=== PATIENT | male | born 1940 | race Caucasian/White ===

== ENCOUNTER 2017-05-04 19:45 | Emergency (ER) | payer MEDICARE, BC ==
--- NOTE | 2017-05-04 20:03 | EDM.PDOC ---
ED HPI GENERAL MEDICAL PROBLEM - General Chief Complaint: Trauma Stated Complaint: LEFT ANKLE PAIN/INJURY Time Seen by Provider: 05/04/17 19:55 Source of Information: Reports: Patient History Limitations: Reports: No Limitations - History of Present Illness INITIAL COMMENTS - FREE TEXT/NARRATIVE: PT STATES AT 1645 TODAY HE ACCIDENTALLY FELL FROM A LADDER AND INJURED LEFT ANKLE AND LEFT RIBS. DENIES LOC, HEAD INJURY, NECK OR BACK PAIN. Onset: Today Duration: Hour(s): Location: Reports: Chest, Lower Extremity, Left Quality: Reports: Ache, Dull Severity: Mild Improves with: Reports: Rest Worsens with: Reports: Movement Associated Symptoms: Reports: No Other Symptoms - Related Data Allergies Allergy/AdvReac Type Severity Reaction Status Date / Time erythromycin base Allergy Stomach Verified 05/04/17 20:08 Upset latex Allergy Itching Verified 05/04/17 20:08 dust mites Allergy Unknown Respiratory Uncoded 05/04/17 20:08 Distress Home Meds: Home Meds Calcium Carb/D3/Magnesium/Zinc [Demetri Mag Zinc + D3] 1 each PO BID 12/05/14 [ History] Diclofenac Sodium [Voltaren] 75 mg PO DAILY PRN 12/05/14 [History] Fluticasone/Salmeterol [Advair 100-50 Diskus] 1 puff INH DAILY 12/05/14 [History ] Tadalafil [Cialis] 5 mg PO DAILY PRN 12/05/14 [History] amLODIPine [Norvasc] 5 mg PO DAILY 12/05/14 [History] Albuterol Sulfate 1.25 mg IH Q4HR PRN #30 ml 10/24/16 [Rx] Alclometasone Dipropionate 1 applic TOP DAILY 05/04/17 [History] Social & Family History - Tobacco Use Smoking Status *Q: Never Smoker Second Hand Smoke Exposure: No - Caffeine Use Caffeine Use: Reports: Tea - Alcohol Use Days Per Week of Alcohol Use: 1 Number of Drinks Per Day: 1 Total Drinks Per Week: 1 - Recreational Drug Use Recreational Drug Use: No - Living Situation & Occupation Occupation: Retired Review of Systems - Review of Systems Review Of Systems: ROS reveals no pertinent complaints other than HPI. Constitutional: Reports: No Symptoms Eyes: Reports: No Symptoms Ears: Reports: No Symptoms Nose: Reports: No Symptoms Mouth/Throat: Reports: No Symptoms Respiratory: Reports: No Symptoms Cardiovascular: Reports: No Symptoms GI/Abdominal: Reports: No Symptoms Genitourinary: Reports: No Symptoms Musculoskeletal: Reports: Leg Pain (LEFT), Joint Pain, Joint Swelling, Other ( LEFT RIB PAIN) Skin: Reports: No Symptoms Neurological: Reports: No Symptoms Psychiatric: Reports: No Symptoms ED EXAM, GENERAL - Physical Exam Exam: See Below Exam Limited By: No Limitations General Appearance: Alert, WD/WN, No Apparent Distress Eye Exam: Bilateral Eye: Normal Inspection Nose: Normal Inspection, No Blood Throat/Mouth: Normal Inspection, Normal Oropharynx, No Airway Compromise Head: Atraumatic, Normocephalic Neck: Normal Inspection, Supple, Non-Tender, Full Range of Motion Respiratory/Chest: No Respiratory Distress, Lungs Clear, Normal Breath Sounds, Other (LEFT RIB TENDER TO PALP/ NO FLAIL, EDEMA, ERYTHEMA, ECCHYMOSIS NOTED) Cardiovascular: Regular Rate, Rhythm, No Murmur GI/Abdominal: Normal Bowel Sounds, Soft, Non-Tender Back Exam: Normal Inspection, Full Range of Motion. No: CVA Tenderness (L), CVA Tenderness (R) Extremities: Joint Swelling (LEFT ANKLE), Leg Pain (LEFT LATERAL MALLEOLUS EDEMA / NO NEUROVASC DEFICIT NOTED) Neurological: Alert, Oriented, CN II-XII Intact, Normal Cognition Psychiatric: Normal Affect, Normal Mood Skin Exam: Warm, Dry, Intact, Normal Color, No Rash Lymphatic: No Adenopathy Course - Orders/Labs/Meds Orders: Active Orders 24 hr Category Date Time Status Ankle Min 3V Lt [CR] Stat Exams 05/04/17 19:57 Ordered Ribs 2V w Chest Lt [CR] Stat Exams 05/04/17 19:57 Ordered - Radiology Interpretation Free Text/Narrative:: xrays show no acute process / fracture or dislocation - Re-Assessments/Exams Free Text/Narrative Re-Assessment/Exam: 05/04/17 21:00 PT AFEBRILE, NONTOXIC APPEARING, VSS, ANKLE SPLINT APPLIED Departure - Departure Time of Disposition: 21:02 Disposition: Home, Self-Care 01 Condition: Good Clinical Impression: Left ankle sprain Qualifiers: Encounter type: initial encounter Involved ligament of ankle: unspecified ligament Qualified Code(s): S93.402A - Sprain of unspecified ligament of left ankle, initial encounter Contusion of rib on left side Qualifiers: Encounter type: initial encounter Qualified Code(s): S20.212A - Contusion of left front wall of thorax, initial encounter - Discharge Information Instructions: Ankle Sprain, [id number], Rib Contusion Additional Instructions: FOLLOW UP WITH YOUR PCP IN NEXT 3-5 DAYS. RETURN TO ER SOONER IF SYMPTOMS CONTINUE - My Orders Last 24 Hours: My Active Orders 05/04/17 19:57 Ankle Min 3V Lt [CR] Stat Ribs 2V w Chest Lt [CR] Stat - Assessment/Plan Last 24 Hours: My Active Orders 05/04/17 19:57 Ankle Min 3V Lt [CR] Stat Ribs 2V w Chest Lt [CR] Stat Assessment:: ANKLE SPRAIN / RIB CONTUSION Plan: F/U WITH PCP
[2017-05-04 20:23] VITALS: BP 165/73
[2017-05-04] MEDS ORDERED: Ketorolac 60 MG/2 ML SDV IM ONE (20:23)
[2017-05-04] MEDS ORDERED: Ketorolac 60 MG/2 ML SDV ONE (20:25)
== END 2017-05-04 21:10 | disposition home or self-care (01) ==
LOC: KA.ED 19:45
DX: S93.402A Sprain of unspecified ligament of left ankle, initial encounter (principal); S20.212A Contusion of left front wall of thorax, initial encounter; Z79.899 Other long term (current) drug therapy; Z88.1 Allergy status to other antibiotic agents; Z91.040 Latex allergy status; W11.XXXA Fall on and from ladder, initial encounter
CPT/HCPCS: 71101; 73610; 96372; 99283; J1885

== ENCOUNTER 2018-03-26 11:20 | Observation (INO) | payer OTHER, MEDICARE, BC ==
[2018-03-26] MEDS ORDERED: Ondansetron 4 MG/2 ML SDV IM ONE (11:35)
[2018-03-26] MEDS ORDERED: Morphine 2 MG/ML Syringe IVPUSH ONE (11:38)
[2018-03-26] MEDS ORDERED: Ondansetron 4 MG/2 ML SDV ONE (11:45)
[2018-03-26] MEDS ORDERED: ALBUTEROL SULFATE 1.25 MG IH PRN (12:51)
[2018-03-26] MEDS ORDERED: TADALAFIL 5 MG PO PRN (12:51)
[2018-03-26] MEDS ORDERED: Diclofenac Sodium 50 MG Tab.EC PO PRN (12:51)
[2018-03-26] MEDS ORDERED: Morphine 2 MG/ML Syringe IVPUSH PRN (12:53)
[2018-03-26] MEDS ORDERED: Calcitonin (Salmon) Nasal Spray 3.7 ML Bottle NAS SCH (13:00)
[2018-03-26] MEDS: Acetaminophen/HYDROcodone 325-10 MG Tab PO PRN ×2 (13:45→21:05)
[2018-03-26] MEDS: hydrOXYzine HCl 50 MG/ML SDV IM PRN (14:38)
--- NOTE | 2018-03-26 17:08 | EDM.PDOC ---
ED HPI GENERAL MEDICAL PROBLEM - General Chief Complaint: Back Pain or Injury Stated Complaint: FALL Time Seen by Provider: 03/26/18 11:20 Source of Information: Reports: Patient History Limitations: Reports: No Limitations - History of Present Illness INITIAL COMMENTS - FREE TEXT/NARRATIVE: 77-year-old male presents emergency room with complaints of pelvic and low back pain. Patient also has a an abrasion contusion over the posterior aspect of the parietal lobe. 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 He reports a brief loss of consciousness for a few seconds. He denies any nausea or vomiting. He denies significant headache. He has no chest pain or shortness of breath. He denies difficulty breathing. He has increased pain in his lower back and across his pelvis. He reports significant increased pain in his low back and pelvis with ambulation. He denies any extremity pain swelling or deformity of either the upper or lower extremities. He has no double vision or blurred vision. He denies any speech difficulties, he denies any balance problems. He denies any numbness or tingling in his extremities he has no saddle paresthesias or numbness in the peritoneal area. He has no loss of bowel or bladder control. He is brought in by his . Onset: Today Onset Date: 03/26/18 Duration: Minutes: Location: Reports: Back, Pelvis Quality: Reports: Sharp Severity: Severe Improves with: Reports: Rest Worsens with: Reports: Movement Associated Symptoms: Reports: Other (head trauma, LOC). Denies: Chest Pain, Headaches, Nausea/Vomiting, Shortness of Breath Lower Back Pain Score (Numeric/FACES): 8 - Related Data Allergies Allergy/AdvReac Type Severity Reaction Status Date / Time erythromycin base Allergy Stomach Verified 03/26/18 14:04 Upset latex Allergy Itching Verified 03/26/18 14:04 dust mites Allergy Unknown Respiratory Uncoded 05/04/17 20:08 Distress Home Meds: Home Meds Calcium Carb/D3/Magnesium/Zinc [Demetri Mag Zinc + D3] 1 each PO BID 12/05/14 [ History] Diclofenac Sodium [Voltaren] 75 mg PO DAILY PRN 12/05/14 [History] Fluticasone/Salmeterol [Advair 100-50 Diskus] 1 puff INH DAILY 12/05/14 [History ] Tadalafil [Cialis] 5 mg PO DAILY PRN 12/05/14 [History] amLODIPine [Norvasc] 5 mg PO DAILY 12/05/14 [History] Albuterol Sulfate 1.25 mg IH Q4HR PRN #30 ml 10/24/16 [Rx] Past Medical History HEENT History: Reports: Cataract Cardiovascular History: Reports: Hypertension Respiratory History: Reports: Asthma Gastrointestinal History: Reports: Chronic Constipation Musculoskeletal History: Reports: Arthritis Neurological History: Reports: None Endocrine/Metabolic History: Reports: Osteoporosis, Vitamin D Deficiency Oncologic (Cancer) History: Reports: Other (See Below) Other Oncologic History: skin cancer removed from face - Infectious Disease History Infectious Disease History: Reports: Chicken Pox, Pertussis (Whooping Cough), Shingles - Past Surgical History HEENT Surgical History: Reports: Cataract Surgery, Oral Surgery Cardiovascular Surgical History: Reports: None Respiratory Surgical History: Reports: None GI Surgical History: Reports: Bariatric Procedure, Colonoscopy Endocrine Surgical History: Reports: None Neurological Surgical History: Reports: None Musculoskeletal Surgical History: Reports: Other (See Below) Other Musculoskeletal Surgeries/Procedures:: left rotator cuff. right hand surgery Social & Family History - Tobacco Use Smoking Status *Q: Never Smoker - Caffeine Use Caffeine Use: Reports: Coffee, Soda - Recreational Drug Use Recreational Drug Use: No - Living Situation & Occupation Occupation: Retired ED ROS GENERAL - Review of Systems Review Of Systems: ROS reveals no pertinent complaints other than HPI. ED EXAM,LOWER BACK PAIN/INJURY - Physical Exam Exam: See Below Exam Limited By: No Limitations General Appearance: Alert, WD/WN, Mild Distress Eye Exam: Bilateral Eye: EOMI, PERRL, Other (No evidence of raccoon eyes) Ears: Normal External Exam, Normal Canal, Hearing Grossly Normal, Normal TMs, Other (No blood in the ears, no neal sign) Nose: Normal Inspection, Normal Mucosa, No Blood Throat/Mouth: Normal Inspection, Normal Lips, Normal Teeth, Normal Gums, Normal Oropharynx, Normal Voice, No Airway Compromise Head: Other (Scalp abrasions posterior parietal, no deformity and no crepitation of the skull) Neck: Normal Inspection, Supple, Non-Tender, Full Range of Motion. No: Tender Lateral, Tender Midline Respiratory/Chest: No Respiratory Distress, Lungs Clear, Normal Breath Sounds, No Accessory Muscle Use, Chest Non-Tender Cardiovascular: Normal Peripheral Pulses, Regular Rate, Rhythm GI/Abdominal: Normal Bowel Sounds, Soft, Non-Tender Back Exam: Paraspinal Tenderness, Vertebral Tenderness, Other (Motion is limited and patient has increased pain when arising from most flap to an upright position. Patient is log rolled) Extremities: Normal Inspection, Normal Range of Motion, Non-Tender, No Pedal Edema, Normal Capillary Refill, Other (No pain or tenderness to palpation of the pelvis. He has normal hip range of motion. Both the upper and lower extremities have no swelling warmth deformity or joint swelling) Neurological: Alert, Normal Mood/Affect, Normal Dorsiflexion, CN II-XII Intact, Normal Plantar Flexion, Normal Reflexes, No Motor/Sensory Deficits, Oriented x 3 Psychiatric: Normal Affect, Normal Mood Skin Exam: Warm, Dry, Intact, Normal Color, No Rash Course - Vital Signs Last Recorded V/S: Last Vital Signs Temp 98.2 F 03/26/18 12:49 Pulse 94 03/26/18 12:49 Resp 20 03/26/18 12:49 BP 145/103 H 03/26/18 12:49 Pulse Ox 97 03/26/18 12:49 - Orders/Labs/Meds Orders: Active Orders 24 hr Category Date Time Status Head wo Cont [CT] Stat Exams 03/26/18 11:40 Taken Lumbar Spine 2 or 3V [CR] Stat Exams 03/26/18 11:38 Taken Pelvis 1V or 2V [CR] Stat Exams 03/26/18 11:38 Taken Medication Orders Hydrocodone Bitart/Acetaminophen ([place] 325-10 Mg) 1 tab PO Q4H PRN PRN Reason: Pain Last Admin: 03/26/18 13:45 Dose: 1 tab Amlodipine Besylate (Norvasc) 5 mg PO DAILY NOEL Calcitonin [place] (Miacalcin Nasal [place]) 0 ml [place] DAILY NOEL Last Admin: 03/26/18 16:36 Dose: Diclofenac Sodium (Voltaren) 75 mg PO DAILY PRN PRN Reason: Pain Hydroxyzine HCl (Vistaril) 50 - 75 mg IM Q4H PRN PRN Reason: muscle spasms Last Admin: 03/26/18 14:38 Dose: 75 mg Morphine Sulfate (Morphine) 2 mg IVPUSH Q4H PRN PRN Reason: Pain Non-Formulary Medication (Albuterol Sulfate [Albuterol Sulfate]) 1.25 mg IH Q4HR PRN PRN Reason: Shortness of Breath Non-Formulary Medication (Alclometasone Dipropionate [Alclometasone Dipropionate ]) 1 applic TOP DAILY NOEL Non-Formulary Medication (Calcium Carb/D3/Magnesium/Zinc [Demetri Mag Zinc + D3]) 1 each PO BID NOEL Non-Formulary Medication (Tadalafil [Cialis]) 5 mg PO DAILY PRN PRN Reason: Other Fluticasone/Salmeterol (Advair Diskus 100-50) 1 puff INH DAILY NOEL Meds: Medications Generic Name Dose Route Start Last Admin Trade Name Freq PRN Reason Stop Dose Admin Hydrocodone Bitart/Acetaminophen 1 tab 03/26/18 12:52 03/26/18 13:45 [place] 325-10 Mg PO 1 tab Q4H PRN Administration Pain Amlodipine Besylate 5 mg 03/27/18 09:00 Norvasc PO DAILY [facility] Calcitonin [place] 0 ml 03/26/18 13:00 03/26/18 16:36 Miacalcin Nasal [place] WOOD[place] Not Given DAILY [facility] Diclofenac Sodium 75 mg 03/26/18 12:51 Voltaren PO DAILY PRN Pain Hydroxyzine HCl 50 - 75 mg 03/26/18 14:15 03/26/18 14:38 Vistaril IM 75 mg Q4H PRN Administration muscle spasms Morphine Sulfate 2 mg 03/26/18 12:53 Morphine IVPUSH Q4H PRN Pain Non-Formulary Medication 1.25 mg 03/26/18 12:51 Albuterol Sulfate [Albuterol Sulfate] IH Q4HR PRN Shortness of Breath Non-Formulary Medication 1 applic 03/27/18 09:00 Alclometasone Dipropionate [Alclometasone Dipropionate] TOP DAILY NOEL Non-Formulary Medication 1 each 03/26/18 21:00 Calcium Carb/D3/Magnesium/Zinc [Demetri Mag Zinc + D3] PO BID NOEL Non-Formulary Medication 5 mg 03/26/18 12:51 Tadalafil [Cialis] PO DAILY PRN Other Fluticasone/Salmeterol 1 puff 03/27/18 09:00 Advair Diskus 100-50 INH DAILY NOEL Discontinued Medications Generic Name Dose Route Start Last Admin Trade Name Jase PRN Reason Stop Dose Admin Morphine Sulfate 2 mg 03/26/18 11:38 03/26/18 11:45 Morphine IVPUSH 03/26/18 11:39 2 mg ONETIME ONE Administration Ondansetron HCl Confirm 03/26/18 11:45 03/26/18 11:35 Zofran Administered 03/26/18 11:46 4 mg Dose Administration 4 mg .ROUTE .[facility] ONE - Re-Assessments/Exams Free Text/Narrative Re-Assessment/Exam: 03/26/18 17:12 Patient was given 2 mg of IV morphine. His pain is well controlled at rest. Departure - Departure Time of Disposition: 13:25 Disposition: Admitted As Inpatient 67 Condition: Good Clinical Impression: Abrasion of scalp Qualifiers: Encounter type: initial encounter Qualified Code(s): S00.01XA - Abrasion of scalp, initial encounter Head trauma Qualifiers: Encounter type: initial encounter Qualified Code(s): S09.90XA - Unspecified injury of head, initial encounter Compression fracture of L1 lumbar vertebra Qualifiers: Encounter type: initial encounter Fracture type: closed Qualified Code(s): S32.010A - Wedge compression fracture of first lumbar vertebra, initial encounter for closed fracture Contusion of pelvic region Qualifiers: Encounter type: initial encounter Qualified Code(s): S30.0XXA - Contusion of lower back and pelvis, initial encounter - Discharge Information - My Orders Last 24 Hours: My Active Orders 03/26/18 11:38 Lumbar Spine 2 or 3V [CR] Stat Pelvis 1V or 2V [CR] Stat 03/26/18 11:40 Head wo Cont [CT] Stat - Assessment/Plan Last 24 Hours: My Active Orders 03/26/18 11:38 Lumbar Spine 2 or 3V [CR] Stat Pelvis 1V or 2V [CR] Stat 03/26/18 11:40 Head wo Cont [CT] Stat Assessment:: 1. Compression fracture or vertebral body of L1 2. Scalp abrasion 3. Head trauma 4. Pelvic contusion Plan: 1. Admit for pain control. 2. Patient will need to be fitted with a Browne brace by PT tomorrow. A #6 steel cell brace will need to be custom fitted for the patient and will need to wear this for 3 months. 3. Log roll while getting out of bed 4. 10 pound or less lifting limit 5. Miacalcin nasal spray for fracture pain and for compression fracture. 6. Follow-up with orthospine in 7-10 days. Please use patient's ER note as admission H&P.
[2018-03-26] MEDS: Non-Formulary Medication 1 Each (Calcium Carb/D3/Magnesium/Zinc [Cal Mag Zinc + D3] 1 EACH PO SCH (20:57)
[2018-03-26] MEDS ORDERED: Albuterol 0.083% 2.5 MG/3 ML Neb Soln INH PRN (22:30)
[2018-03-26] MEDS ORDERED: Diclofenac Sodium 75 MG Tab.EC PO PRN (22:30)
[2018-03-27] MEDS: hydrOXYzine HCl 50 MG/ML SDV IM PRN (06:10)
[2018-03-27] MEDS ORDERED: ALCLOMETASONE DIPROPIONATE TOP SCH (09:00)
[2018-03-27] MEDS ORDERED: Fluticasone/Salmeterol 100-50 MCG Inhalation Powder 14/Diskus INH SCH (09:00)
[2018-03-27] MEDS: Non-Formulary Medication 1 Each (Calcium Carb/D3/Magnesium/Zinc [Cal Mag Zinc + D3] 1 EACH PO SCH (09:37)
[2018-03-27] MEDS: amLODIPine 5 MG Tab PO SCH (09:37)
[2018-03-27] MEDS ORDERED: [UNRECOGNIZED DRUG - REMARK] TOP PRN (10:15)
[2018-03-27] MEDS: Acetaminophen/HYDROcodone 325-10 MG Tab PO PRN ×3 (10:59→20:44)
[2018-03-27] MEDS: Cyclobenzaprine 10 MG Tab PO PRN ×2 (11:23→20:44)
--- NOTE | 2018-03-27 13:49 | PCM.PN ---
- General Info Date of Service: 03/27/18 Admission Dx/Problem (Free Text): Fall with L1 compression fracture, here for pain control. - Review of Systems Systems Review Comment:: Earl is seen this morning on inpatient rounds. He fell yesterday (03/26) from a tractor he was climbing into and carrying several things, losing his balance. He did his his posterior head, head CT was negative. He was having low back pain and pelvic pain. X-ray of pelvis was negative but lumbar spine x-ray showed an L1 compression fracture. Ortho recommend a criciform anterior spinal hyperextension brace (MARTINS) with eventual TLSO brace for 3 months. He was admitted for pain control. He states when he is flat in bed he is OK but pain goes up to a 6/7 with movement. He was also started on nasal calcitonin. He is on hydrocodone/APAP 10/325 mg tabs 1 PO q 4 hours PRN as well as morphine 2 mg IV as needed for breakthrough pain. As if this morning he had not taken any pain meds today. He is passing his bowels and urine. He has been up to the bathroom. He does log-rolling for turns in bed. - Patient Data Vitals - Most Recent: Last Vital Signs Temp 99.6 F 03/27/18 11:00 Pulse 87 03/27/18 11:00 Resp 16 03/27/18 11:00 BP 130/77 03/27/18 11:00 Pulse Ox 93 L 03/27/18 11:00 Weight - Most Recent: 215 lb I&O - Last 24 Hours: Intake & Output 03/26/18 03/27/18 03/27/18 22:59 06:59 14:59 Intake Total 470 100 Output Total 825 300 Balance -355 -200 Med Orders - Current: Current Medications Hydrocodone Bitart/Acetaminophen ([place] 325-10 Mg) 1 tab PO Q4H PRN PRN Reason: Pain Last Admin: 03/27/18 10:59 Dose: 1 tab Albuterol (Proventil Neb Soln) 1.25 mg INH Q4HR PRN PRN Reason: Shortness of Breath Amlodipine Besylate (Norvasc) 5 mg PO DAILY NOEL Last Admin: 03/27/18 09:37 Dose: 5 mg Calcitonin [place] (Miacalcin Nasal [place]) 0 ml [place] 2100 NOEL Cyclobenzaprine HCl (Flexeril) 10 mg PO TID PRN PRN Reason: muscle spasm Last Admin: 03/27/18 11:23 Dose: 10 mg Diclofenac Sodium (Voltaren) 75 mg PO DAILY PRN PRN Reason: Pain Hydroxyzine HCl (Vistaril) 50 - 75 mg IM Q4H PRN PRN Reason: muscle spasms Last Admin: 03/27/18 06:10 Dose: 75 mg Morphine Sulfate (Morphine) 2 mg IVPUSH Q4H PRN PRN Reason: Pain Non-Formulary Medication (Calcium Carb/D3/Magnesium/Zinc [Demetri Mag Zinc + D3]) 1 each PO BID [facility] Last Admin: 03/27/18 09:37 Dose: Not Given Non-Formulary Medication (Tadalafil [Cialis]) 5 mg PO DAILY PRN PRN Reason: Other Non-Form Alclometasone Dipropionate 1 applic TOP DAILY PRN PRN Reason: rash Fluticasone/Salmeterol (Advair Diskus 100-50) 1 puff INH DAILY [facility] Last Admin: 03/27/18 09:37 Dose: Not Given Senna/Docusate Sodium (Senna Plus) 1 tab PO BEDTIME NOEL Discontinued Medications Calcitonin [place] (Miacalcin Nasal [place]) 0 ml [place] DAILY [facility] Last Admin: 03/26/18 16:36 Dose: Not Given Diclofenac Sodium (Voltaren) 75 mg PO DAILY PRN PRN Reason: Pain Morphine Sulfate (Morphine) 2 mg IVPUSH ONETIME ONE Stop: 03/26/18 11:39 Last Admin: 03/26/18 11:45 Dose: 2 mg Non-Formulary Medication (Albuterol Sulfate [Albuterol Sulfate]) 1.25 mg IH Q4HR PRN PRN Reason: Shortness of Breath Non-Formulary Medication (Alclometasone Dipropionate [Alclometasone Dipropionate ]) 1 applic TOP DAILY [facility] Last Admin: 03/27/18 10:08 Dose: Not Given Ondansetron HCl (Zofran) Confirm Administered Dose 4 mg .ROUTE .STK-MED ONE Stop: 03/26/18 11:46 Last Admin: 03/26/18 11:35 Dose: 4 mg Ondansetron HCl (Zofran) 4 mg IM ONETIME ONE Stop: 03/26/18 11:36 Last Admin: 03/26/18 20:45 Dose: Not Given - Exam General: Alert, Oriented, Cooperative, No Acute Distress Lungs: Clear to Auscultation, Normal Respiratory Effort Cardiovascular: Regular Rate, Regular Rhythm, No Murmurs Extremities: Normal Inspection - Problem List & Annotations (1) Compression fracture of L1 lumbar vertebra SNOMED Code(s): 481399944 Code(s): S32.010A - WEDGE COMPRESSION FRACTURE OF FIRST LUMBAR VERTEBRA, INIT Status: Acute Current Visit: Yes Qualifiers: Encounter type: initial encounter Fracture type: closed Qualified Code(s) : S32.010A - Wedge compression fracture of first lumbar vertebra, initial encounter for closed fracture - Problem List Review Problem List Initiated/Reviewed/Updated: Yes - My Orders Last 24 Hours: My Active Orders 03/27/18 11:19 Cyclobenzaprine [Flexeril] 10 mg PO TID PRN 03/27/18 21:00 Docusate Sodium/Sennosides [Senna Plus] 1 tab PO BEDTIME - Assessment Assessment:: L1 Compression fracture. - Plan Plan:: L1 Compression fracture. The machine puller was able to come from [place] today to measure him for a TLSO was also able to fit him with a MARTINS Brace today. He said to them his pain was better after placement of the brace and sitting up for a while. I did encourage him to ask for his hydrocodone when he had pain as it was not a scheduled medication but to be taken when needed. He can go home with this for pain. I anticipate him being here through 03/29/18, being discharged that morning and then going by private vehicle down to [place] to be fitted with the TLSO as it will be available by then. He can follow-up with ortho in [place] on April 10 which is 2 weeks post injury. Will start senna today for constipation prophylaxis. Will start cyclobenzaprine for muscle spasm. DVT prophylaxis: He is ambulatory.
[2018-03-27] MEDS: MAGNESIUM PO SCH (20:44)
[2018-03-27] MEDS: ZINC PO SCH (20:44)
[2018-03-27] MEDS: CHOLECALCIFEROL PO SCH (20:44)
[2018-03-27] MEDS: CALCIUM PO SCH (20:44)
[2018-03-27] MEDS: Calcitonin (Salmon) Nasal Spray 3.7 ML Bottle NAS SCH (20:51)
[2018-03-28] MEDS: Acetaminophen/HYDROcodone 325-10 MG Tab PO PRN ×3 (06:02→18:30)
[2018-03-28] MEDS: Cyclobenzaprine 10 MG Tab PO PRN ×3 (06:12→22:35)
[2018-03-28] MEDS: CALCIUM PO SCH ×2 (08:20→22:14)
[2018-03-28] MEDS: amLODIPine 5 MG Tab PO SCH (08:20)
[2018-03-28] MEDS: ZINC PO SCH ×2 (08:20→22:14)
[2018-03-28] MEDS: MAGNESIUM PO SCH ×2 (08:20→22:14)
[2018-03-28] MEDS: CHOLECALCIFEROL PO SCH ×2 (08:20→22:14)
--- NOTE | 2018-03-28 08:35 | PCM.PN ---
- General Info Date of Service: 03/28/18 Admission Dx/Problem (Free Text): Fall with L1 compression fracture, here for pain control. - Review of Systems Systems Review Comment:: Earl is seen today on inpatient rounds. He was admitted on 03/26/18 after a fall out of a tractor and sustained an L1 vertebral fracture. He was fitted yesterday with a MARTINS brace and will get his TLSO tomorrow. He is feeling more comfortable with the MARTINS brace on and states the hydrocodone and cyclobenzaprine are helping with his back pain. He states he feels slightly constipated. He is on senna but nothing else for his bowels. He has been up walking. His appetite is good. - Patient Data Vitals - Most Recent: Last Vital Signs Temp 98.2 F 03/28/18 06:51 Pulse 89 03/28/18 06:51 Resp 20 03/28/18 06:51 BP 143/79 H 03/28/18 08:20 Pulse Ox 96 03/28/18 06:51 Weight - Most Recent: 215 lb I&O - Last 24 Hours: Intake & Output 03/27/18 03/28/18 03/28/18 22:59 06:59 14:59 Intake Total 220 200 Output Total 300 100 Balance -80 100 Med Orders - Current: Current Medications Hydrocodone Bitart/Acetaminophen ([place] 325-10 Mg) 1 tab PO Q4H PRN PRN Reason: Pain Last Admin: 03/28/18 06:02 Dose: 1 tab Albuterol (Proventil Neb Soln) 1.25 mg INH Q4HR PRN PRN Reason: Shortness of Breath Amlodipine Besylate (Norvasc) 5 mg PO DAILY [facility] Last Admin: 03/28/18 08:20 Dose: 5 mg Calcitonin [place] (Miacalcin Nasal [place]) 0 ml [place] 2100 NOEL Last Admin: 03/27/18 20:51 Dose: Not Given Cyclobenzaprine HCl (Flexeril) 10 mg PO TID PRN PRN Reason: muscle spasm Last Admin: 03/28/18 06:12 Dose: 10 mg Diclofenac Sodium (Voltaren) 50 mg PO DAILY PRN PRN Reason: Pain Hydroxyzine HCl (Vistaril) 50 - 75 mg IM Q4H PRN PRN Reason: muscle spasms Last Admin: 03/27/18 06:10 Dose: 75 mg Morphine Sulfate (Morphine) 2 mg IVPUSH Q4H PRN PRN Reason: Pain Non-Formulary Medication (Tadalafil [Cialis]) 5 mg PO DAILY PRN PRN Reason: Other Non-Form Alclometasone Dipropionate 1 applic TOP DAILY PRN PRN Reason: rash Ptom Advair 100- 50 Mcg Inhalation Powder 1 each INH DAILY [facility] Ptom Calcium/Magnesium/Zinc/Vit D3 Tab 1 each PO BID [facility] Last Admin: 03/28/18 08:20 Dose: 1 each Senna/Docusate Sodium (Senna Plus) 1 tab PO BEDTIME [facility] Last Admin: 03/27/18 20:44 Dose: 1 tab Discontinued Medications Calcitonin [place] (Miacalcin Nasal [place]) 0 ml WOODROW DAILY [facility] Last Admin: 03/26/18 16:36 Dose: Not Given Diclofenac Sodium (Voltaren) 75 mg PO DAILY PRN PRN Reason: Pain Diclofenac Sodium (Voltaren) 75 mg PO DAILY PRN PRN Reason: Pain Morphine Sulfate (Morphine) 2 mg IVPUSH ONETIME ONE Stop: 03/26/18 11:39 Last Admin: 03/26/18 11:45 Dose: 2 mg Non-Formulary Medication (Albuterol Sulfate [Albuterol Sulfate]) 1.25 mg IH Q4HR PRN PRN Reason: Shortness of Breath Non-Formulary Medication (Alclometasone Dipropionate [Alclometasone Dipropionate ]) 1 applic TOP DAILY [facility] Last Admin: 03/27/18 10:08 Dose: Not Given Non-Formulary Medication (Calcium Carb/D3/Magnesium/Zinc [Demetri Mag Zinc + D3]) 1 each PO BID [facility] Last Admin: 03/27/18 09:37 Dose: Not Given Ondansetron HCl (Zofran) Confirm Administered Dose 4 mg .ROUTE .STK-MED ONE Stop: 03/26/18 11:46 Last Admin: 03/26/18 11:35 Dose: 4 mg Ondansetron HCl (Zofran) 4 mg IM ONETIME ONE Stop: 03/26/18 11:36 Last Admin: 03/26/18 20:45 Dose: Not Given Fluticasone/Salmeterol (Advair Diskus 100-50) 1 puff INH DAILY [facility] Last Admin: 03/27/18 09:37 Dose: Not Given - Exam General: Alert, Oriented, Cooperative, No Acute Distress Lungs: Clear to Auscultation, Normal Respiratory Effort Cardiovascular: Regular Rate, Regular Rhythm, No Murmurs Extremities: No Pedal Edema - Problem List & Annotations (1) Compression fracture of L1 lumbar vertebra SNOMED Code(s): 862991027 Code(s): S32.010A - WEDGE COMPRESSION FRACTURE OF FIRST LUMBAR VERTEBRA, INIT Status: Acute Current Visit: Yes Qualifiers: Encounter type: initial encounter Fracture type: closed Qualified Code(s) : S32.010A - Wedge compression fracture of first lumbar vertebra, initial encounter for closed fracture (2) Asthma SNOMED Code(s): 466284859 Code(s): J45.909 - UNSPECIFIED ASTHMA, UNCOMPLICATED Status: Acute Current Visit: Yes (3) Hypertension SNOMED Code(s): 48606915 Code(s): I10 - ESSENTIAL (PRIMARY) HYPERTENSION Status: Acute Current Visit: Yes - Problem List Review Problem List Initiated/Reviewed/Updated: Yes - My Orders Last 24 Hours: My Active Orders 03/27/18 11:19 Cyclobenzaprine [Flexeril] 10 mg PO TID PRN 03/27/18 14:24 Vital Signs [RC] 0700,1500,2300 03/27/18 21:00 Docusate Sodium/Sennosides [Senna Plus] 1 tab PO BEDTIME - Assessment Assessment:: L1 Compression fracture. Asthma. Hypertension. Constipation. - Plan Plan:: L1 Compression fracture. The director service was able to come from [place] 03/27 to measure him for a TLSO was also able to fit him with a MARTINS Brace. Continue with hydrocodone and cyclobenzaprine for pain control. HTN. Continue amlodipine. Asthma. Continue Advair. Constipation. Will add Miralax to his Senna. I anticipate him being here through 03/29/18, being discharged that morning and then going by private vehicle down to [place] to be fitted with the TLSO as it will be available by then. He can follow-up with ortho in [place] on May 10 here in [place]. DVT prophylaxis: He is ambulatory.
[2018-03-28] MEDS: ADVAIR INH SCH (12:14)
[2018-03-28] MEDS: Polyethylene Glycol 3350 Powder 17 GM Packet PO SCH (12:14)
[2018-03-28] MEDS: Diclofenac Sodium 50 MG Tab.EC PO PRN (16:41)
[2018-03-28] MEDS ORDERED: Bisacodyl 10 MG Supp RECTAL ONE (19:48)
[2018-03-28] MEDS: Calcitonin (Salmon) Nasal Spray 3.7 ML Bottle NAS SCH (21:52)
[2018-03-29] MEDS: Acetaminophen/HYDROcodone 325-10 MG Tab PO PRN (05:42)
[2018-03-29] MEDS: Cyclobenzaprine 10 MG Tab PO PRN (05:42)
[2018-03-29] MEDS: Polyethylene Glycol 3350 Powder 17 GM Packet PO SCH (08:12)
[2018-03-29] MEDS: ZINC PO SCH (08:13)
[2018-03-29] MEDS: amLODIPine 5 MG Tab PO SCH (08:13)
[2018-03-29] MEDS: MAGNESIUM PO SCH (08:13)
[2018-03-29] MEDS: CALCIUM PO SCH (08:13)
[2018-03-29] MEDS: CHOLECALCIFEROL PO SCH (08:13)
[2018-03-29] MEDS: ADVAIR INH SCH (08:14)
[2018-03-29] MEDS: Diclofenac Sodium 50 MG Tab.EC PO PRN (08:16)
[2018-03-29] MEDS ORDERED: Bisacodyl 10 MG Supp RECTAL ONE (08:35)
[2018-03-29] MEDS ORDERED: Sodium Phosphate,Monobasic/Sodium Phosphate,Dibasic Enema 133 ML Bottle RECTAL ONE (09:17)
[2018-03-29 10:04] VITALS: BP 124/77
--- NOTE | 2018-03-30 16:50 | DISCH ---
This is 77-year-old male who was admitted to the hospital on 03/26/2018. On 03/26/2018, he fell from a tractor he was climbing into. He was carrying several things at that time and he lost his balance. He hit the posterior aspect of his head. Head CT was negative. Chief complaint was low back pain and pelvic pain. X-ray of the pelvis was negative. Lumbar spine x-ray showed an L1 compression fracture. Consultation with Orthopedics recommended a "Cruciform Anterior Spinal Hyperextension" brace with eventual TLSO brace for three months. Following his discharge, he is planning to travel to [place] per private car to be fitted for the TLSO brace. He was admitted for pain control. He has required hydrocodone 10/325 every 4 to 6 hours for pain. He is also using cyclobenzaprine 10 mg t.i.d. as needed for muscle spasms. Calcitonin nasal spray was recommended, however, we did not have this in our formulary in the hospital. He will be sent home with a prescription for calcitonin spray in addition to hydrocodone as well as cyclobenzaprine. He has had issues with constipation and has been using senna as well as MiraLAX. He has been instructed to continue these following discharge. The patient's chief complaint today is that of constipation. He reports cramping in his lower abdomen. He is requesting an enema. The patient states he has been up walking and his appetite has been fairly good. PHYSICAL EXAMINATION: VITAL SIGNS: He is afebrile. His pulse is 72, respirations 18, blood pressure 153/96. This was taken following a trip to the bathroom. The patient's blood pressure has been fairly good during his hospitalization. He is taking amlodipine for hypertension at home and will continue the same. SKIN: Warm and dry to touch. He does have a MARTINS brace on. CARDIAC: Reveals S1, S2 to be normal. Rate and rhythm are regular. No murmur, click, or gallop is auscultated. LUNGS: Clear without rales, wheezes, or rhonchi. EXTREMITIES: There is no edema in the lower extremities. IMPRESSION: 1. L1 compression fracture, pain control. The patient is being discharged from the hospital today. He is going to [place] to be fitted for a TLSO brace and he is to use this as directed. He will follow with Orthopedics, Dr. Johnny Garcia in April. He will follow up with Dr. Era Aceves next week. He will continue hydrocodone 10/325 mg tablets one tab every 4 hours as needed for pain. Cyclobenzaprine 10 mg t.i.d. as needed for muscle spasm. He was given a prescription for calcitonin nasal spray and instructed to use one spray nasally per day. Use one nostril per day and alternate nostrils every other day. He will continue senna and MiraLAX for constipation. He did receive an enema today prior to discharge with good results. 2. Hypertension. He will continue amlodipine. 3. He does have a past history of asthma and he will continue Advair. 4. Constipation. Please see problem #1. He was given instructions to call the clinic or hospital with any questions or concerns whatsoever and was given phone numbers for the same. /[id number]/MODL
== END 2018-03-29 11:35 | disposition home or self-care (01) ==
LOC: KA.ED 11:20 → KA.MS 12:49
PROVIDERS: ADMIT Physician Assistant; ATTEND Physician Assistant
DX: S32.010A Wedge compression fracture of first lumbar vertebra, initial encounter for closed fracture (principal); I10 Essential (primary) hypertension; J45.909 Unspecified asthma, uncomplicated; S00.03XA Contusion of scalp, initial encounter; M19.90 Unspecified osteoarthritis, unspecified site; K59.09 Other constipation; M81.0 Age-related osteoporosis without current pathological fracture; E55.9 Vitamin D deficiency, unspecified; W17.89XA Other fall from one level to another, initial encounter; Z88.1 Allergy status to other antibiotic agents; Z91.040 Latex allergy status; Z91.09 Other allergy status, other than to drugs and biological substances; Z79.899 Other long term (current) drug therapy; Z79.51 Long term (current) use of inhaled steroids; Z85.828 Personal history of other malignant neoplasm of skin
CPT/HCPCS: 70450; 72100; 72170; 96372; 96374; 96375; 99285; A9270-GY; G0378; J2270; J2405; J3410

== ENCOUNTER 2019-01-12 20:03 | Emergency (ER) | payer MEDICARE, BC ==
[2019-01-12] MEDS ORDERED: Albuterol/Ipratropium 3.0-0.5 MG/3 ML Neb Soln ONE (20:19)
[2019-01-12] MEDS ORDERED: methylPREDNISolone Sodium Succinate 125 MG/2 ML SDV IM ONE (20:19)
[2019-01-12] MEDS ORDERED: Albuterol/Ipratropium 3.0-0.5 MG/3 ML Neb Soln NEB ONE ×2 (20:19→20:37)
--- NOTE | 2019-01-12 20:24 | EDM.PDOC ---
ED HPI GENERAL MEDICAL PROBLEM - General Chief Complaint: Respiratory Problem Stated Complaint: BRONCHITIS Time Seen by Provider: 01/12/19 20:20 Source of Information: Reports: Patient History Limitations: Reports: No Limitations - History of Present Illness INITIAL COMMENTS - FREE TEXT/NARRATIVE: 78 YO WM presents to ER complaining of productive cough, congestion and mild shortness of breath x 2 weeks. Pt was seen in clinic 10 days ago for similar symptoms and was started on levaquin 500mg PO QD x 10 days and prednisone 40mg PO QD x 5 days. Pt reports mid course he felt better but symptoms returned over the last few days. Pt reports history of asthma and states he's been using his nebulizer approximately 2x/day. Pt denies fever/chills, no chest pain, no hemoptysis. Duration: Week(s): (2) Location: Reports: Chest Severity: Mild Improves with: Reports: Medication Worsens with: Reports: Breathing Associated Symptoms: Reports: cough w sputum, Shortness of Breath. Denies: Chest Pain, Fever/Chills, Headaches, Malaise, Nausea/Vomiting, Rash, Weakness - Related Data Allergies Allergy/AdvReac Type Severity Reaction Status Date / Time erythromycin base Allergy Intermediate Stomach Verified 01/12/19 20:23 Upset latex Allergy Itching Verified 01/12/19 20:23 dust mites Allergy Unknown Respiratory Uncoded 03/26/18 19:55 Distress Home Meds: Home Meds Calcium Carb/D3/Magnesium/Zinc [Demetri Mag Zinc + D3] 1 each PO BID 12/05/14 [ History] Tadalafil [Cialis] 5 mg PO DAILY PRN 12/05/14 [History] amLODIPine [Norvasc] 5 mg PO DAILY 12/05/14 [History] Albuterol Sulfate 1.25 mg IH TID PRN 03/27/18 [History] Diclofenac Sodium [Voltaren] 75 mg PO DAILY PRN 03/27/18 [History] Fluticasone/Salmeterol [Advair 100-50] 1 puff INH BID 03/27/18 [History] Fluticasone/Salmeterol [Advair 250-50 Diskus] 1 puff INH BID 03/27/18 [History] Olopatadine HCl [Pataday] 1 drop EYEBOTH DAILY PRN 03/27/18 [History] Albuterol [Proventil Neb Soln] 1.25 mg INH Q4HR PRN neb 03/29/18 [Rx] Calcitonin ([place]) [Miacalcin Nasal [place]] 1 spray [place] DAILY #1 bottle [Rx] Cyclobenzaprine [Flexeril] 10 mg PO TID PRN tablet 03/29/18 [Rx] Diclofenac Sodium [Voltaren] 50 mg PO DAILY PRN tab.ec 03/29/18 [Rx] Docusate Sodium/Sennosides [Senokot-S] 1 each PO ASDIRECTED #30 tablet 03/29/18 [Rx] Patient's Own Medication [Ptom] 1 each INH DAILY each 03/29/18 [Rx] Polyethylene Glycol 3350 [MiraLAX] 17 gm PO DAILY packet 03/29/18 [Rx] Albuterol/Ipratropium [DuoNeb 3.0-0.5 MG/3 ML] 3 ml .XX Q4HR #30 neb 01/12/19 [ Rx] Doxycycline Monohydrate 100 mg PO BID #20 capsule 01/12/19 [Rx] predniSONE [Prednisone] 20 mg PO DAILY #15 tablet 01/12/19 [Rx] Past Medical History HEENT History: Reports: Cataract Cardiovascular History: Reports: Hypertension Respiratory History: Reports: Asthma Gastrointestinal History: Reports: Chronic Constipation Musculoskeletal History: Reports: Arthritis Neurological History: Reports: None Endocrine/Metabolic History: Reports: Osteoporosis, Vitamin D Deficiency Oncologic (Cancer) History: Reports: Other (See Below) Other Oncologic History: skin cancer removed from face - Infectious Disease History Infectious Disease History: Reports: Chicken Pox, Pertussis (Whooping Cough), Shingles - Past Surgical History HEENT Surgical History: Reports: Cataract Surgery, Oral Surgery Cardiovascular Surgical History: Reports: None Respiratory Surgical History: Reports: None GI Surgical History: Reports: Bariatric Procedure, Colonoscopy Endocrine Surgical History: Reports: None Neurological Surgical History: Reports: None Musculoskeletal Surgical History: Reports: Other (See Below) Other Musculoskeletal Surgeries/Procedures:: left rotator cuff. right hand surgery Social & Family History - Caffeine Use Caffeine Use: Reports: Coffee, Soda - Living Situation & Occupation Occupation: Retired ED ROS GENERAL - Review of Systems Review Of Systems: See Below Constitutional: Reports: No Symptoms HEENT: Reports: Rhinitis Respiratory: Reports: Shortness of Breath, Wheezing Cardiovascular: Reports: No Symptoms Endocrine: Reports: No Symptoms GI/Abdominal: Reports: No Symptoms : Reports: No Symptoms Musculoskeletal: Reports: No Symptoms Skin: Reports: No Symptoms Neurological: Reports: No Symptoms Psychiatric: Reports: No Symptoms Hematologic/Lymphatic: Reports: No Symptoms Immunologic: Reports: No Symptoms ED EXAM, GENERAL - Physical Exam Exam: See Below Exam Limited By: No Limitations General Appearance: Alert, WD/WN, No Apparent Distress Ears: Normal External Exam, Normal Canal, Hearing Grossly Normal, Normal TMs Nose: Normal Inspection, Normal Mucosa, No Blood Throat/Mouth: Normal Inspection, Normal Lips, Normal Teeth, Normal Gums, Normal Oropharynx, Normal Voice, No Airway Compromise Head: Atraumatic, Normocephalic Neck: Normal Inspection, Supple, Non-Tender, Full Range of Motion Respiratory/Chest: No Respiratory Distress, No Accessory Muscle Use, Chest Non- Tender, Wheezing, Prolonged Expiration. No: Lungs Clear, Normal Breath Sounds, Respiratory Distress, Accessory Muscle Use, Retractions, Splinting Cardiovascular: Normal Peripheral Pulses, Regular Rate, Rhythm, No Edema, No Gallop, No JVD, No Murmur, No Rub GI/Abdominal: Normal Bowel Sounds, Soft, Non-Tender, No Organomegaly, No Distention, No Abnormal Bruit, No Mass Back Exam: Normal Inspection, Full Range of Motion, NT Extremities: Normal Inspection, Normal Range of Motion, Non-Tender, Normal Capillary Refill, No Pedal Edema Neurological: Alert, Oriented, CN II-XII Intact, Normal Cognition, Normal Gait, Normal Reflexes, No Motor/Sensory Deficits Psychiatric: Normal Affect, Normal Mood Skin Exam: Warm, Dry, Intact, Normal Color, No Rash Lymphatic: No Adenopathy Course - Vital Signs Last Recorded V/S: Last Vital Signs Temp 36.2 C 01/12/19 20:23 Pulse 80 01/12/19 20:23 Resp 20 01/12/19 20:23 BP 141/81 H 01/12/19 20:23 Pulse Ox 94 L 01/12/19 20:23 - Orders/Labs/Meds Orders: Active Orders 24 hr Category Date Time Status RT Aerosol Therapy [RC] ASDIRECTED Care 01/12/19 20:19 Active RT Aerosol Therapy [RC] ASDIRECTED Care 01/12/19 20:37 Ordered Chest 2V [CR] Stat Exams 01/12/19 20:19 Ordered Doxycycline [Vibramycin] Med 01/12/19 21:00 Ordered 300 mg PO Q12HR Meds: Medications Discontinued Medications Generic Name Dose Route Start Last Admin Trade Name Jase PRN Reason Stop Dose Admin Albuterol/Ipratropium 3 ml 01/12/19 20:19 01/12/19 20:33 Duoneb 3.0-0.5 Mg/3 Ml NEB 01/12/19 20:20 3 ml ONETIME ONE Administration Albuterol/Ipratropium Confirm 01/12/19 20:19 01/12/19 20:34 Duoneb 3.0-0.5 Mg/3 Ml Administered 01/12/19 20:20 Not Given Dose 3 ml .ROUTE .STK-MED ONE Albuterol/Ipratropium 15 ml 01/12/19 20:37 Duoneb 3.0-0.5 Mg/3 Ml NEB 01/12/19 20:38 ONETIME ONE Methylprednisolone Sodium Succinate 125 mg 01/12/19 20:19 01/12/19 20:34 Solu-Medrol IM 01/12/19 20:20 125 mg ONETIME ONE Administration Prednisone 60 mg 01/12/19 20:37 Prednisone PO 01/12/19 20:38 ONETIME ONE - Radiology Interpretation Free Text/Narrative:: CXR- NAD - Re-Assessments/Exams Free Text/Narrative Re-Assessment/Exam: 01/12/19 21:00 wheezing resolved after duoneb tx. Pt states he feels better and cough has resolved Departure - Departure Time of Disposition: 21:00 Disposition: Home, Self-Care 01 Condition: Good Clinical Impression: Bronchitis Acute bronchitis Qualifiers: Bronchitis organism: other organism Qualified Code(s): J20.8 - Acute bronchitis due to other specified organisms - Discharge Information Prescriptions: Albuterol/Ipratropium [DuoNeb 3.0-0.5 MG/3 ML] 3 ml .XX Q4HR #30 neb Doxycycline Monohydrate 100 mg PO BID #20 capsule predniSONE [Prednisone] 20 mg PO DAILY #15 tablet Instructions: Acute Bronchitis, Adult Referrals: Era Hernández MD [Primary Care Provider] - Forms: ED Department Discharge Additional Instructions: 1. Discharge home 2. doxycycline 100mg PO BID x 10days 3. prednisone 60mg PO QD x 5 days 4. Duoneb Q4 and PRN 5. follow up in clinic next 48 hours for recheck 6. return to ER for worsening symptoms - My Orders Last 24 Hours: My Active Orders 01/12/19 20:19 RT Aerosol Therapy [RC] ASDIRECTED Chest 2V [CR] Stat 01/12/19 20:37 RT Aerosol Therapy [RC] ASDIRECTED 01/12/19 21:00 Doxycycline [Vibramycin] 300 mg PO Q12HR - Assessment/Plan Last 24 Hours: My Active Orders 01/12/19 20:19 RT Aerosol Therapy [RC] ASDIRECTED Chest 2V [CR] Stat 01/12/19 20:37 RT Aerosol Therapy [RC] ASDIRECTED 01/12/19 21:00 Doxycycline [Vibramycin] 300 mg PO Q12HR Assessment:: 1. Acute Bronchitis Plan: 1. Discharge home 2. doxycycline 100mg PO BID x 10days 3. prednisone 60mg PO QD x 5 days 4. Duoneb Q4 and PRN 5. follow up in clinic next 48 hours for recheck 6. return to ER for worsening symptoms
[2019-01-12 20:25] VITALS: BP 141/81
[2019-01-12] MEDS ORDERED: predniSONE 20 MG Tab PO ONE (20:37)
--- NOTE | 2019-01-13 10:40 | CR ---
[id number] RAD/RAD Chest PA And Lateral EXAM: RAD Chest PA And Lateral INDICATION: SHORTNESS OF BREATH. COMPARISON: January 01, 2019. DISCUSSION: Cardiomediastinal silhouette is normal in size and contour. Changes of chronic obstructive pulmonary disease. No infiltrate, effusion, pneumothorax, or edema. IMPRESSION: No acute findings or significant change from the prior examination. Julián Thompson MD 01/13/19 1039 Thank you for allowing us to participate in the care of your patient.
== END 2019-01-12 21:45 | disposition home or self-care (01) ==
LOC: KA.ED 20:03
DX: J20.8 Acute bronchitis due to other specified organisms (principal); I10 Essential (primary) hypertension; Z79.899 Other long term (current) drug therapy; Z88.1 Allergy status to other antibiotic agents; Z91.040 Latex allergy status; Z91.09 Other allergy status, other than to drugs and biological substances
CPT/HCPCS: 71046; 94640; 96372; 99283; J2930; J7620-GY

== ENCOUNTER 2022-12-15 10:31 | Observation (INO) | payer MEDICARE, BC ==
[2022-12-15 11:16] LABS: CORONAVIRUS COVID-19 NAA NEGATIVE (NEGATIVE)
[2022-12-15] MEDS ORDERED: Magnesium Hydroxide 400 MG/5 ML Susp 30 ML Cup PO ONE (11:39)
[2022-12-15] MEDS ORDERED: Sodium Chloride 0.9% 10 ML Syringe FLUSH PRN (11:39)
[2022-12-15] MEDS ORDERED: Sodium Chloride 0.9% 1,000 ML IV ONE (11:39)
[2022-12-15] MEDS ORDERED: Acetaminophen 500 MG Tab PO ONE (11:51)
[2022-12-15 12:21] LABS: ANION GAP 15.2 mmol/L (5-15); CHLORIDE,CL 103 mmol/L (98-107); SODIUM,NA 139 mmol/L (136-145)
[2022-12-15 12:27] LABS: ESTIMATED GFR 87 mL/min (>=60)
[2022-12-15] MEDS: Albuterol 0.083% 2.5 MG/3 ML Neb Soln NEB SCH ×5 (12:34→19:23)
[2022-12-15] MEDS ORDERED: Ondansetron 4 MG Tab.DIS PO PRN (18:37)
[2022-12-15] MEDS ORDERED: Acetaminophen 325 MG Tab PO PRN (18:37)
[2022-12-15] MEDS ORDERED: Oseltamivir 75 MG Cap PO ONE (18:45)
[2022-12-15] MEDS ORDERED: Sodium Chloride 0.9% 1,000 ML IV SCH (18:45)
[2022-12-15] MEDS ORDERED: Albuterol 0.083% 2.5 MG/3 ML Neb Soln NEB PRN (21:48)
[2022-12-16 05:13] VITALS: PULSE 98
[2022-12-16 07:45] VITALS: BP 132/74
[2022-12-16 07:53] LABS: ANION GAP 11.5 mmol/L (5-15)
[2022-12-16] MEDS ORDERED: Oseltamivir 75 MG Cap PO SCH (09:00)
== END 2022-12-16 09:38 | disposition home or self-care (01) ==
LOC: KA.OC 10:31 → KA.IVTHER 10:31 → KA.MS 17:34 → UNDOADMOB 17:34 → KA.MS 18:31
PROVIDERS: ADMIT Nurse Practitioner Family; ATTEND Nurse Practitioner Family
DX: R50.9 Fever, unspecified (principal); R05.9 Cough, unspecified; J09.X9 Influenza due to identified novel influenza A virus with other manifestations; Z79.899 Other long term (current) drug therapy; Z91.040 Latex allergy status; Z88.0 Allergy status to penicillin; Z88.1 Allergy status to other antibiotic agents; Z88.8 Allergy status to other drugs, medicaments and biological substances
CPT/HCPCS: 0240U; 36415; 71046; 80048; 83605; 85025; 87040; 94640; 99223; 99238; A9270-GY; G0378; J7030; J7613-GY